=== PATIENT | male | born 1985 | race Caucasian/White ===

== ENCOUNTER → 2016-11-16 | Outpatient (CLI) | payer BC ==
--- NOTE | 2016-11-16 21:18 | CONS ---
DATE OF CONSULTATION: This is a 31-year-old male patient who is coming in accompanied by his due to concerns about obstructive sleep apnea. His tells me that the patient snores very loudly and he stops breathing almost 6 times every 2 minutes; this has been counted by his while he is sleeping. He wakes up tired and sleepy during the day. He goes to bed around 10:30 p.m., wakes up at 5:30 a.m. in the morning. The patient is not obese; however, he can fall asleep at any time. He has not been involved in a motor vehicle accident and he is able to work at his full capacity without any major limitation. His current [place] score is 15. No grinding of the teeth. No restlessness in the lower extremities. No nocturnal heartburn. No sleepwalking or sleeptalking. No sleep paralysis. No hallucinations. No cataplexy. PAST MEDICAL HISTORY: Negative. SURGICAL HISTORY: Negative. ALLERGIES: NOT KNOWN. MEDICATIONS: None. SOCIAL HISTORY: Nonsmoker. No history of alcohol. No history of IV drugs. FAMILY HISTORY: Positive for obstructive sleep apnea in his father. REVIEW OF SYSTEMS: Twelve-point review of systems was done, and the positive findings were all mentioned above in the history of present illness. BP is 124/70. Pulse 65, respiration 14, temperature 98.2, saturation 99% on room air. Neck size 16 inches. BMI is 28. [place] score is 15. GENERAL APPEARANCE: Calm, comfortable. HEENT: Short neck. Crowding of posterior pharynx. Mallampati class IV. No goiter or neck masses. LUNGS: Clear to auscultation. HEART: Sounds are regular rate and rhythm. Normal S1, S2. No S3. No S4. No murmurs. ABDOMEN: Soft, nontender. No organomegaly. EXTREMITIES: No edema. No cyanosis or clubbing. IMPRESSION: 1. Obstructive sleep apnea suspected, currently under investigation. 2. Loud snoring. 3. Witnessed apneas. 4. Hypersomnia with [place] score of 15. PLAN: 1. Proceed with a PSG. 2. Avoid driving, especially when feeling drowsy or sleepy. 3. Implement good sleep hygiene measures. 4. Will continue to follow.
== END | disposition home or self-care (01) ==
LOC: SLEEP 15:53
PROVIDERS: ATTEND Internal Medicine Critical Care Medicine
DX: G47.33 Obstructive sleep apnea (adult) (pediatric) (principal); G47.10 Hypersomnia, unspecified
CPT/HCPCS: 99211

== ENCOUNTER → 2017-04-05 | Outpatient (CLI) | payer BC ==
--- NOTE | 2017-04-06 05:28 | PN ---
A 31-year-old male patient coming in for a CPAP compliancy check. The patient was diagnosed having CARI approximately 3 months ago. Based on the sleep study, it was done here at the sleep center and the patient was found to have an AHI of 22 and the patient was given CPAP titration during which he was titrated to a CPAP pressure of 8 cm of water. He is using a Mirage FX mask. Apparently the first 3 to 4 weeks the treatment was great and subsequently he started failing as the patient became more uncomfortable and he felt better off the treatment. He ultimately dropped the CPAP use based on the compliance data. Over the past month the patient is not using the treatment. Prior to that, the patient was using on a average of 4.4 hours and his AHI was down to 3. Upon further questioning, it seems that the patient is having difficulty with the Mirage FX mask. He prefers the nasal pillows. I fit him with an AirFit P10 extra small nasal pillows for now and he seems to be more committed to treatment. BP is 127/78, pulse 67, respirations 16, temperature 97.8. Weight is 187. BMI is 28.2. GENERAL APPEARANCE: Appears calm, comfortable, in no acute distress. HEENT: Negative for JVD. No goiter or neck mass. LUNGS: Clear to auscultation. HEART: Sounds regular rate and rhythm. Normal S1, S2. No S3, no murmurs. ABDOMEN: Soft, nontender. No organomegaly. EXTREMITIES: No edema, cyanosis or clubbing. IMPRESSION: Symptomatic obstructive sleep apnea with an AHI of 22, currently suboptimal compliance on CPAP of 8. PLAN: 1. Switch this patient to an AirFit P10 extra small. 2. Encourage weight loss. 3. Recheck in 30 days time. MECHELLE
== END | disposition home or self-care (01) ==
LOC: SLEEP 15:57
PROVIDERS: ATTEND Internal Medicine Critical Care Medicine
DX: G47.33 Obstructive sleep apnea (adult) (pediatric) (principal)